=== PATIENT | female | born 1990 | race Caucasian/White ===

== ENCOUNTER 2020-07-08 15:38 | Outpatient (RCR) | payer OTHER, SELFPAY ==
[2020-07-08 16:07] LABS: Basophils Percent Auto 0.4 % (0.2-1.2); Eosinophils Absolute Auto 0.2 K/mm3 (0-0.3); Eosinophils Percent Auto 1.7 % (0-4.4); Hematocrit 34.5 % (37.0-47.0); Hemoglobin 11.5 g/dL (12.0-15.0); Immature Granulocyte Absolute 0.02 K/mm3 (0.00-0.031); Immature Granulocyte Percent A 0.2 % (0-0.5); Lymphocytes Absolute Auto 2.87 K/mm3 (0.9-3.2); Lymphocytes Percent Auto 32.1 % (18.3-44.2); Mean Corpuscular HGB Conc 33.3 g/dl (32-36); Mean Corpuscular Volume 90.1 fl (80-100); Monocytes Absolute Auto 0.4 K/mm3 (0.1-0.6); Monocytes Percent Auto 4.4 % (2.6-8.5); Neutrophils Absolute Auto 5.5 K/mm3 (1.3-6.7); Neutrophils Percent Auto 61.2 % (45.5-73.1); Platelet Count Result 181 k/mm3 (150-375); Red Blood Count 3.83 M/mm3 (4.2-5.4); Red Cell Distribution Width 12.2 % (11.5-14.5); White Blood Count 8.9 K/mm3 (4.5-10.0)
[2020-07-08 16:14] LABS: Add Urine Microscopic? NO; Appearance Urine Clear (Clear); Bilirubin Urine Negative (Negative); Blood Urine Negative (Negative); Color Urine Yellow (Yellow); Glucose Urine UA Negative (Negative); Ketones Urine Negative (Negative); Leukocyte Esterase Ur Negative LEU/UL (NEGATIVE); Nitrate Urine Negative (Negative); Protein Urine Negative (Negative); Specific Grav Ur 1.017 (1.001-1.035); Urobilinogen Urine Negative mg/dL (<2.0)
[2020-07-08 17:01] LABS: HIV 1/2 Ab P24 Ag Result Negative (Negative)
[2020-07-08 17:18] LABS: Hepatitis B Surface Antigen Negative (Negative)
[2020-07-08 17:22] LABS: Vitamin D 25 Hydroxy 28.7 ng/mL
[2020-07-08 17:34] LABS: Hepatitis C Virus Antibody Negative (Negative)
[2020-07-09 10:38] LABS: Rapid Plasma Reagin Non-Reactive (NonReactive)
[2020-07-14 22:35] LABS: Hematocrit 34.7 % (35.0-45.0); Hemoglobin 11.6 g/dL (11.7-15.5); MCH 30.3 pg (27.0-33.0); MCV 90.3 FL (80.0-100.0); RDW 12.7 % (11.0-15.0); Red Blood Cell Count 3.84 Mill/uL (3.80-5.10)
== END 2020-10-06 23:59 | disposition home or self-care (01) ==
LOC: ANHLAB 15:38
PROVIDERS: Visit Provider Obstetrics & Gynecology
DX: Z11.4 Encounter for screening for human immunodeficiency virus [HIV] (principal)
CPT/HCPCS: 36415; 81003; 82306; 83021; 84443; 85025; 86592; 86703; 86762; 86787; 86803; 86850; 86900; 86901; 87086; 87340; G0432

== ENCOUNTER 2020-12-03 08:49 | Outpatient (RCR) | payer OTHER, SELFPAY ==
[2020-12-03 10:20] LABS: Basophils Percent Auto 0.3 % (0.2-1.2); Eosinophils Absolute Auto 0.1 K/mm3 (0-0.3); Eosinophils Percent Auto 0.9 % (0-4.4); Hematocrit 34.3 % (37.0-47.0); Immature Granulocyte Absolute 0.05 K/mm3 (0.00-0.031); Immature Granulocyte Percent A 0.5 % (0-0.5); Lymphocytes Absolute Auto 1.61 K/mm3 (0.9-3.2); Lymphocytes Percent Auto 16.4 % (18.3-44.2); Mean Corpuscular HGB Conc 32.1 g/dl (32-36); Mean Corpuscular Hemoglobin 30.8 pg (26-34); Mean Corpuscular Volume 96.1 fl (80-100); Mean Platelet Volume 9.8 fl (7.4-10.4); Monocytes Absolute Auto 0.4 K/mm3 (0.1-0.6); Monocytes Percent Auto 3.6 % (2.6-8.5); Neutrophils Absolute Auto 7.7 K/mm3 (1.3-6.7); Neutrophils Percent Auto 78.3 % (45.5-73.1); Platelet Count Result 148 k/mm3 (150-375); Red Blood Count 3.57 M/mm3 (4.2-5.4); Red Cell Distribution Width 12.8 % (11.5-14.5); White Blood Count 9.8 K/mm3 (4.5-10.0)
[2020-12-03 10:32] LABS: Glucose 1 Hour PP 50gm Dose 156 mg/dL
[2020-12-03] MEDS: RHO(D) IMMUNE GLOBULIN 300 MCG/2 ML SYRINGE IM (14:25)
== END 2021-03-03 23:59 | disposition home or self-care (01) ==
LOC: ANHLAB 08:49
PROVIDERS: Visit Provider Obstetrics & Gynecology
DX: Z29.13 Encounter for prophylactic Rho(D) immune globulin (principal); O36.0190 Maternal care for anti-D [Rh] antibodies, unspecified trimester, not applicable or unspecified; Z3A.00 Weeks of gestation of pregnancy not specified
CPT/HCPCS: 36415; 82947; 85025; 85461; 90384; 96372; J2790

== ENCOUNTER 2020-12-19 08:37 | Outpatient (CLI) | payer OTHER, SELFPAY ==
[2020-12-19 09:39] LABS: Glucose Fasting Gestational 78 mg/dL (>/=95)
[2020-12-19 11:12] LABS: Glucose 1 Hour Gest 153 mg/dL (>/=180)
[2020-12-19 12:08] LABS: Glucose 2 Hour Gest 147 mg/dL (>/= 155)
[2020-12-19 13:04] LABS: Glucose 3 Hour Gest 109 mg/dL (>/=140)
== END 2020-12-19 08:38 | disposition home or self-care (01) ==
LOC: ANHLAB 08:41
PROVIDERS: Visit Provider Obstetrics & Gynecology
DX: R73.09 Other abnormal glucose (principal)
CPT/HCPCS: 36415; 82951; 82952

== ENCOUNTER 2021-01-07 08:50 | Outpatient (CLI) | payer OTHER, SELFPAY ==
[2021-01-07 09:34] LABS: Basophils Percent Auto 0.3 % (0.2-1.2); Eosinophils Absolute Auto 0.1 K/mm3 (0-0.3); Eosinophils Percent Auto 1.1 % (0-4.4); Hematocrit 32.9 % (37.0-47.0); Hemoglobin 10.9 g/dL (12.0-15.0); Immature Granulocyte Absolute 0.08 K/mm3 (0.00-0.031); Immature Granulocyte Percent A 0.8 % (0-0.5); Lymphocytes Absolute Auto 1.88 K/mm3 (0.9-3.2); Lymphocytes Percent Auto 18.9 % (18.3-44.2); Mean Corpuscular HGB Conc 33.1 g/dl (32-36); Mean Corpuscular Hemoglobin 30.9 pg (26-34); Mean Corpuscular Volume 93.2 fl (80-100); Mean Platelet Volume 10.1 fl (7.4-10.4); Monocytes Absolute Auto 0.6 K/mm3 (0.1-0.6); Monocytes Percent Auto 5.7 % (2.6-8.5); Neutrophils Absolute Auto 7.3 K/mm3 (1.3-6.7); Neutrophils Percent Auto 73.2 % (45.5-73.1); Platelet Count Result 155 k/mm3 (150-375); Red Blood Count 3.53 M/mm3 (4.2-5.4); Red Cell Distribution Width 12.8 % (11.5-14.5)
[2021-01-07 10:22] LABS: HIV 1/2 Ab P24 Ag Result Negative (Negative)
[2021-01-08 09:06] LABS: Rapid Plasma Reagin Non-Reactive (NonReactive)
== END 2021-01-07 08:51 | disposition home or self-care (01) ==
PROVIDERS: Visit Provider Obstetrics & Gynecology
DX: Z34.93 Encounter for supervision of normal pregnancy, unspecified, third trimester (principal); Z3A.32 32 weeks gestation of pregnancy
CPT/HCPCS: 36415; 85025; 86592; 86703; G0432

== ENCOUNTER 2021-02-08 10:16 | Inpatient (IN) | payer OTHER, SELFPAY ==
[2021-02-08] VITALS (102 sets, daily range): BP systolic 91–126; BP diastolic 40–87; PULSE 51–103; RESP 16; TEMP 36.4–37; O2SAT 90–100; BMI 24.4
[2021-02-08 14:39] LABS: Basophils Percent Auto 0.2 % (0.2-1.2); Eosinophils Absolute Auto 0.1 K/mm3 (0-0.3); Eosinophils Percent Auto 0.8 % (0-4.4); Hematocrit 38.3 % (37.0-47.0); Hemoglobin 12.8 g/dL (12.0-15.0); Immature Granulocyte Absolute 0.07 K/mm3 (0.00-0.031); Immature Granulocyte Percent A 0.7 % (0-0.5); Lymphocytes Absolute Auto 1.95 K/mm3 (0.9-3.2); Lymphocytes Percent Auto 18.4 % (18.3-44.2); Mean Corpuscular HGB Conc 33.4 g/dl (32-36); Mean Corpuscular Hemoglobin 31.1 pg (26-34); Mean Platelet Volume 10.2 fl (7.4-10.4); Monocytes Absolute Auto 0.5 K/mm3 (0.1-0.6); Neutrophils Percent Auto 74.9 % (45.5-73.1); Platelet Count Result 165 k/mm3 (150-375); Red Blood Count 4.12 M/mm3 (4.2-5.4); White Blood Count 10.6 K/mm3 (4.5-10.0)
--- NOTE | 2021-02-08 14:51 | LDADM ---
This patient, Hallie Mckeon, was admitted to Labor/Delivery/Recovery 104 on 02/08/21 at 10:16 to rule out labor. Pt ruled in for labor, then plans for labor, pain management and were discussed with patient. Patient oriented to hospital policies and general routines including ID bracelet, bed and alarms, visiting hours, pain management, procedures, bathroom and other care routines, personal items, smoking policy, room service/diet and guest tray routines, infant security routines, call light and visiting hours. Patient is encouraged to report perceived risks to care and to ask questions if she does not understand what she does told or what she should do. See OBIX for further documentation.
[2021-02-08] MEDS: LACTATED RINGERS 1,000 ML 125 ML IV CONT ×2 (14:59→15:21)
--- NOTE | 2021-02-08 15:08 | WPDANESEPP ---
Anes - Eval Pre Procedure Procedure: labor pain management Date/Time: 02/08/21 15:08 Surgeon: Sandra Preop Diagnosis: pain during labor Pre Op Diagnosis: Leaking Patient Data Age: 30 Gender: F Height: 1.63 m Weight: 64.6 kg Last Vital Signs Pulse 73 02/08/21 15:00 BP 120/73 02/08/21 15:00 Allergies Allergy/AdvReac Type Severity Reaction Status Date / Time No Known Allergies Allergy Verified 02/08/21 14:48 Home Medications Medication Instructions Recorded Confirmed Type docosahexaenoic acid 200 mg capsule 200 mg PO DAILY 06/25/20 02/08/21 History cholecalciferol (vitamin D3) 50 50 mcg PO DAILY 08/20/20 02/08/21 History mcg (2,000 unit) capsule ferrous sulfate 325 mg (65 mg 325 mg PO DAILY 01/29/21 02/08/21 History iron) tablet docusate sodium [Colace] 50 mg PO DAILY 01/31/21 02/08/21 History Laboratory Tests 02/08/21 02/08/21 14:23 14:23 WBC 10.6 K/mm3 H K/mm3 (4.5-10.0) RBC 4.12 M/mm3 L M/mm3 (4.2-5.4) Hgb 12.8 g/dL g/dL (12.0-15.0) Hct 38.3 % % (37.0-47.0) MCV 93.0 fl fl (80-100) MCH 31.1 pg pg (26-34) MCHC 33.4 g/dl g/dl (32-36) RDW 13.0 % % (11.5-14.5) Plt Count 165 k/mm3 k/mm3 (150-375) MPV 10.2 fl fl (7.4-10.4) Immature Gran % (Auto) 0.7 % H % (0-0.5) Neut % (Auto) 74.9 % H % (45.5-73.1) Lymph % (Auto) 18.4 % % (18.3-44.2) [place] % (Auto) 5.0 % % (2.6-8.5) Eos % (Auto) 0.8 % % (0-4.4) Baso % (Auto) 0.2 % % (0.2-1.2) Lymph # (Auto) 1.95 K/mm3 K/mm3 (0.9-3.2) [place] # (Auto) 0.5 K/mm3 K/mm3 (0.1-0.6) Eos # (Auto) 0.1 K/mm3 K/mm3 (0-0.3) Baso # (Auto) 0.0 K/mm3 K/mm3 (0.0-0.1) Abs Immat Gran (auto) 0.07 K/mm3 H K/mm3 (0.00-0.031) Absolute Neuts (auto) 8.0 K/mm3 H K/mm3 (1.3-6.7) Absolute Nucleated RBC 0.0 K/mm3 K/mm3 (0.0-0.012) Nucleated RBC % 0.0 % % (0.0-0.2) RPR Pending : gestational age (edc 02/26/21) HCG: positive Patient hx anesthesia problems: none Family hx anesthesia problems: none PMFSH Past Medical History Medical History (Updated 02/08/21 @ 15:05 by Janina Chaudhary CRNA) Vaginal delivery x1 Surgical History Surgical History No pertinent past surgical history Family History Family History Mother Hypertension Family history of gynecological problem Father Family history of diabetes mellitus in first degree relative Grandparent Hypertension Family history of chronic obstructive pulmonary disease Family history of dementia Other Family history of malignant neoplasm of male breast Social History Social History Smoking status: Never smoker Second hand tobacco smoke exposure: No Alcohol intake: current Substance use: unknown Gender identity (if verbalized by the patient): Female Spiritual care concerns: No Exam Day of Procedure 02/08/21 15:08
[2021-02-08] MEDS: OXYTOCIN 30 UNITS/NS 500 ML 30 UNITS/500 ML BAG IV CONT (17:16)
--- NOTE | 2021-02-08 20:24 | PM.OBPRVD ---
OB - Delivery Note Procedure Delivery date: 02/08/21 Procedure: Spontaneous vaginal delivery Intrapartal events: None Delivery augmentation: pitocin Delivery monitor: external FHT Route of delivery: Laceration Description: None Specimen: No Quantitative Blood Loss (ml): 100 Anesthesia type: Spinal Disposition: floor Complications: None Narrative: Patient admitted in active labor. She initially presented for leaking of fluid. ROM plus neg. She was jeni regularly. She was observed and her cervix did change. She had another episode of fluid and ROM plus at that time was equivocal but since she was having cervical change she admitted for labor and will have spontaneous rupture of membranes at approximately 1100. She did require pitocin augmentation. She dilated to complete. [place] Baby Date of : 02/08/21 Time of : 20:08 Weeks of gestation at delivery: 37 Infant gender: Male Weight (pounds): 6 Weight (ounces): 5 presentation: vertex position: Right Occiput Anterior Placenta delivery description: Spontaneous cord vessel description: 3 Vessels, Nuchal Cord and Tight (surgically reduced) score one minute: 8 score five minutes: 9
--- NOTE | 2021-02-08 20:29 | PM.IMHP ---
H&P: HPI History of Present Illness Date/Time: 02/08/21 20:29 Patient at 37 weeks with an EDC of 02/26 by LMP 05/22/20 consistent with a first trimester ultrasound. She presented with questionable leaking. Initial SROM negative. She was jeni and changing cervix and was admitted in labor. She did have another gush at admission but SROM equivocal. Suspect she did have ROM at the second episode. Admitted in labor. Labs reviewed. GBS neg. Chief Complaint: Leaking and contractions. Review of Systems Review of Systems: All systems reviewed & are unremarkable except as noted in HPI and below Constitutional: Constitutional: Reports no additional constitutional complaints and Denies headache(s) Eyes: Eyes: Denies spots in vision ENT: Reports system reviewed and no additional complaints, except as documented and Denies headache(s) Cardiovascular: Cardiovascular: Denies chest pain and Denies dyspnea Respiratory: Respiratory: Denies dyspnea Gastrointestinal: Gastrointestinal: Reports no additional gastrointestinal complaints Genitourinary: Genitourinary: Reports amenorrhea Musculoskeletal: Musculoskeletal: Reports no additional musculoskeletal complaints Integumentary/Breasts: Skin/Breast: Denies breast mass and Denies rash Neurologic: Denies headache(s) Psychiatric: Psychiatric: Reports no additional psychiatric complaints PMFSH Past Medical History Medical History Vaginal delivery x1 Surgical History Surgical History No pertinent past surgical history Family History Family History Mother Hypertension Family history of gynecological problem Father Family history of diabetes mellitus in first degree relative Grandparent Hypertension Family history of chronic obstructive pulmonary disease Family history of dementia Other Family history of malignant neoplasm of male breast Social History Social History Smoking status: Never smoker Second hand tobacco smoke exposure: No Alcohol intake: current Substance use: unknown Gender identity (if verbalized by the patient): Female Spiritual care concerns: No Meds Home Medications and Allergies Home Medications Medication Instructions Recorded Confirmed Type docosahexaenoic acid 200 mg capsule 200 mg PO DAILY 06/25/20 02/08/21 History cholecalciferol (vitamin D3) 50 50 mcg PO DAILY 08/20/20 02/08/21 History mcg (2,000 unit) capsule ferrous sulfate 325 mg (65 mg 325 mg PO DAILY 01/29/21 02/08/21 History iron) tablet docusate sodium [Colace] 50 mg PO DAILY 01/31/21 02/08/21 History Allergies Allergy/AdvReac Type Severity Reaction Status Date / Time No Known Allergies Allergy Verified 02/08/21 14:48 Vital Signs Vital Signs - 24 hr 02/08/21 11:25 02/08/21 13:26 02/08/21 14:32 Temperature 97.8 F 97.8 F Pulse Rate 79 Blood Pressure 121/73 Pulse Oximetry 02/08/21 15:00 02/08/21 15:19 02/08/21 15:20 Temperature 97.6 F Pulse Rate 73 Blood Pressure 120/73 Pulse Oximetry 100 02/08/21 15:21 02/08/21 15:24 02/08/21 15:25 Temperature Pulse Rate 74 77 Blood Pressure 126/69 126/63 Pulse Oximetry 100 02/08/21 15:28 02/08/21 15:29 02/08/21 15:33 Temperature Pulse Rate 72 86 Blood Pressure 121/74 122/62 Pulse Oximetry 100 02/08/21 15:34 02/08/21 15:35 02/08/21 15:39 Temperature Pulse Rate 89 Blood Pressure 123/67 Pulse Oximetry 100 100 02/08/21 15:40 02/08/21 15:44 02/08/21 15:45 Temperature Pulse Rate 89 77 Blood Pressure 115/47 L 124/61 Pulse Oximetry 100 02/08/21 15:49 02/08/21 15:50 02/08/21 15:54 Temperature Pulse Rate 81 Blood Pressure 110/66 Pulse Oximetry 99 100 02/08/21 15:55 02/08/21 15:59
[2021-02-08] MEDS: OXYTOCIN 30 UNITS/NS 500 ML 30 UNITS/500 ML BAG 125 UNITS IV CONT (20:51)
--- NOTE | 2021-02-08 22:46 | PC.NURSE ---
Patient transferred to post room #290 via wheelchair. Support person present. Oriented to unit, room, information board, rooming in, admission packet and security measures. Patient verbalizes understanding.
[2021-02-09 03:40] VITALS: BP 108/70; PULSE 76; RESP 16; TEMP 36.9; O2SAT 99
[2021-02-09 04:45] LABS: Hematocrit 34.1 % (37.0-47.0); Hemoglobin 11.4 g/dL (12.0-15.0)
[2021-02-09 07:50] VITALS: BP 108/77; PULSE 69; RESP 16; TEMP 37.3; O2SAT 100
[2021-02-09] MEDS: DOCUSATE SODIUM 100 MG CAPSULE PO (08:33)
[2021-02-09] MEDS: IBUPROFEN 600 MG TABLET PO ×2 (08:34→15:09)
[2021-02-09] MEDS: MULTIVIT/MIN/PREN/FOL AC/IRON TABLET 1 TAB PO (08:35)
[2021-02-09] MEDS: LANOLIN (LANSINOH) 7.5 GM CREAM 1 APPLIC TOPICAL (08:36)
[2021-02-09 09:57] LABS: Rapid Plasma Reagin Non-Reactive (NonReactive)
--- NOTE | 2021-02-09 10:03 | P.PNOB_ITS ---
OB - PN: Subj Subjective Date/time seen: 02/09/21 10:03 Patient doing well. Mild cramping well controlled with medication. Minimal-moderate lochia. Ambulating without difficulty. Baby well. OB - PN: Obj Data Labs CBC & Chem 7: 02/09/21 03:32 Labs: Laboratory Results - last 24 hr 02/08/21 02/08/21 02/08/21 14:23 14:23 14:23 WBC 10.6 H RBC 4.12 L Hgb 12.8 Hct 38.3 MCV 93.0 MCH 31.1 MCHC 33.4 RDW 13.0 Plt Count 165 MPV 10.2 Immature Gran % (Auto) 0.7 H Neut % (Auto) 74.9 H Lymph % (Auto) 18.4 [place] % (Auto) 5.0 Eos % (Auto) 0.8 Baso % (Auto) 0.2 Lymph # (Auto) 1.95 [place] # (Auto) 0.5 Eos # (Auto) 0.1 Baso # (Auto) 0.0 Abs Immat Gran (auto) 0.07 H Absolute Neuts (auto) 8.0 H Absolute Nucleated RBC 0.0 Nucleated RBC % 0.0 RPR Non-reactive Blood Type O Negative Antibody Screen Positive Antibody Identification Passive Due to RH Imm Glob Antigen Identification Cancelled DARIUS, IgG Interpret Not Performed DARIUS, Poly Interpret Negative DARIUS, Complement Interp Not Performed 02/09/21 03:32 WBC RBC Hgb 11.4 L Hct 34.1 L MCV MCH MCHC RDW Plt Count MPV Immature Gran % (Auto) Neut % (Auto) Lymph % (Auto) [place] % (Auto) Eos % (Auto) Baso % (Auto) Lymph # (Auto) [place] # (Auto) Eos # (Auto) Baso # (Auto) Abs Immat Gran (auto) Absolute Neuts (auto) Absolute Nucleated RBC Nucleated RBC % RPR Blood Type Antibody Screen Antibody Identification Antigen Identification DARIUS, IgG Interpret DARIUS, Poly Interpret DARIUS, Complement Interp OB - PN A/P Assessment and Plan (1) Normal spontaneous vaginal delivery: Code(s): O80 - Encounter for full-term uncomplicated delivery Status: Acute Assessment and Plan: PPD#1 doing well continue routine care anticipate dc home tomorrow Time Spent With Patient Time: Total time spent is greater than 50% in coordination of care (as documented) at patient's floor/unit and/or counseling patient: Exam Const: General: cooperative, healthy appearing, comfortable and no acute distress GI: GI Palp: Yes Soft to palpation and No Tenderness to palpation present (GI) Other: fundus firm below umbilicus Extrem: Right lower extremity: no edema Left lower extremity: no edema Other: no calf tenderness
[2021-02-09 11:35] VITALS: BP 117/79; PULSE 91; RESP 16; TEMP 36.9; O2SAT 99
--- NOTE | 2021-02-09 13:25 | PC.NURSE ---
Mother called out for assist with feeding, reporting tenderness to base of both nipples. Mother reports first child for 18 months. is able to freely thrust tongue past gum ridge and flange both lips. Skin is intact on both nipples, redness noted to base of nipple. Discussed the near term infant and possible precautions of weak latch, sleepy feedings, needing to wake each feeding, inability to maintain latch and poor milk transfer which increases chance for increased weight loss, jaundice and low milk supply. Stressed the importance of adequate breast stimulation by pumping, self-expression and skin to skin. Mother attempts to breast in cradle, infant latches shallow to breast with both lips turned in. Reviewed infant feeding cues, frequencies, duration of feedings, feeding elimination flow sheet, and signs of adequate intake. Reviewed positioning/alignment in cross cradle, holding breast in ?U? hold and guided asymmetrical latch on. Discussed rational for each. Suggested releasing latch to attempt in cross cradle Infant able to latch correctly. Reviewed signs of a correct latch, effective nursing and suck swallow ratio. Infant nursed eagerly, with steady draws and occasional swallowing noted. Reviewed the difference of effective vs ineffective nursing. Suggested mother stimulate while feeding to increase stimulation, increase intake and to assist with maintaining deep latch. Infant would slip to shallow latch, mother reports tenderness. Demonstrated how to adjust latch more deeply while feeding. Mother reports she can feel change in latch and has no tenderness. Nipple care reviewed of lanolin after feedings, warm compresses as needed.
[2021-02-09 15:10] VITALS: BP 115/70; PULSE 87; RESP 18; TEMP 36.4; O2SAT 99
[2021-02-09 18:30] VITALS: BP 129/89; PULSE 76; RESP 18; TEMP 37.1; O2SAT 99
[2021-02-10] MEDS: DOCUSATE SODIUM 100 MG CAPSULE PO (08:13)
[2021-02-10] MEDS: IBUPROFEN 600 MG TABLET PO (08:13)
[2021-02-10] MEDS: MULTIVIT/MIN/PREN/FOL AC/IRON TABLET 1 TAB PO (08:13)
[2021-02-10 08:15] VITALS: BP 113/78; PULSE 67; RESP 16; TEMP 36.8
--- NOTE | 2021-02-10 09:06 | P.DS_ITS ---
DS: Admitting Diagnosis Admitting Diagnosis Labor DS: Discharge Diagnosis Discharge Diagnosis (1) Delivery normal: Code(s): O80 - Encounter for full-term uncomplicated delivery Status: Acute OB - DS: Summary Hospital Course Hospital Course: Patient admitted on Feb 08 in labor. She had an uncomplicated vaginal delivery. She did well . day 2 she had adequate pain control, ambulating well, tolerating regular diet. She was allowed discharge on day 2. OB Procedures : Ultrasound OB Procedures Intrapartum: Spontaneous Vag Delivery OB Procedures: : None Peripartum Data Infant Delivery Method: Natural Vaginal complications: none Status at Discharge Functional status at discharge: independent ambulation Time Spent with Patient Time attestation: Total time spent providing and/or coordinating discharge services: Exam Const: General: cooperative Orientation/consciousness: oriented to person, oriented to place and oriented to time HENMT: General nose exam: Normal external nose present Eyes: General: appearance normal, both eyes and all related structures Resp: Effort & Inspection: normal respiratory effort GI: Inspection: normal to inspection Skin: General skin exam: normal color Neuro: General: oriented to person, oriented to place and oriented to time Extrem: General: normal to inspection and no calf tenderness Psych: Appearance: grossly normal Mental Status: mental status grossly normal DS: Data Data Completed and Pending Labs on day of discharge: Labs from last 24 hours 02/08/21 14:23 RPR Non-reactive Discharge Plan Discharge Attending physician on discharge: Brennan Flores Consulting providers: Janina Chaudhary Discharging Clinician: Brennan Flores Anticipated Discharge Date/Time: 02/10/21 09:12 Patient Disposition: Home, Self-Care Activity: may shower and pelvic rest Diet: regular Discharge Instructions: Pelvic rest for 4-6 weeks. May take over the counter Ibuprofen or Tylenol for pain. Call if saturating more than a pad an hour, leg redness, pain and swelling, temperature>100.4. No strenuous activity. Take PNV daily. Patient Instructions: Antibiotic Form Stand Alone Forms: General Discharge Information Follow-up/Referrals: Brennan Flores MD [Physician] - Discharge Medications: Discontinued DHA 200 mg capsule 200 mg PO DAILY RF: 0 ferrous sulfate [Feosol] 325 mg (65 mg iron) tablet 325 mg PO DAILY RF: 0 cholecalciferol (vitamin D3) 50 mcg (2,000 unit) capsule 50 mcg PO DAILY RF: 0 Colace 50 mg Capsule 50 mg PO DAILY RF: 0 Date of admission: 02/08/21 10:16 Primary Care Provider: PHYSICIAN,WEBFOCUS DEVELOPER Admitting Provider: Brennan Flores Attending physician on admission: Brennan Flores Condition: Stable
[2021-02-12 10:31] VITALS: BP 118/77; PULSE 70; RESP 20; TEMP 37; O2SAT 100
== END 2021-02-10 10:55 | disposition home or self-care (01) | DRG 807 ==
LOC: ANHLDR 13:52 → ANHOB2 22:53
PROVIDERS: Admitting Provider Obstetrics & Gynecology; Visit Provider Obstetrics & Gynecology
DX: O69.1XX0 Labor and delivery complicated by cord around neck, with compression, not applicable or unspecified (principal); Z37.0 Single live birth; Z3A.37 37 weeks gestation of pregnancy; O36.8330 Maternal care for abnormalities of the fetal heart rate or rhythm, third trimester, not applicable or unspecified
CPT/HCPCS: 36415; 84112; 85014; 85018; 85025; 86592; 86850; 86880; 86900; 86901; A9270; J2590; J2795; J7120

== ENCOUNTER 2021-10-30 10:04 | Emergency (ER) | payer OTHER, SELFPAY ==
--- NOTE | 2021-10-30 10:10 | ED.URI ---
HPI - URI/Sore Throat General Chief Complaint: Upper Respiratory Infection Stated Complaint: Congestion,Runny Nose,Fatigue,Facial Pain Time Seen by Provider: 10/30/21 10:15 Source: patient, RN notes reviewed and old records reviewed Mode of arrival: ambulatory Limitations: no limitations History of Present Illness HPI Narrative: 31-year-old female who presents to [facility] with complaints of runny nose congestion fatigue and facial pain for the past 11 days. Patient reports she has been taking Ree-D and Nasacort and ibuprofen for her symptoms with some improvement but not resolution. Patient states facial pain and forehead discomfort with headache, with nasal drainage which has turned to thick greenish discharge. Patient denies any shortness of breath or acute cough, denies any ear pain. Patient has had COVID immunizations and booster and has had the flu shot. Patient is presently breast-feeding. She did take home COVID test on 14 which was negative MD elicited complaint: rhinorrhea, nasal congestion and other (fatigue and facial pain) Related Data Home Medications Medication Instructions Recorded Confirmed [id number] fum-folic [id number] 1 pkg PO DAILY 10/30/21 10/30/21 [Daily ] Allergies Allergy/AdvReac Type Severity Reaction Status Date / Time No Known Allergies Allergy Verified 10/30/21 10:07 Review of Systems Review of Systems: CONSTITUTIONAL: Denies fever, chills, or sweats. EYES: Denies visual changes, redness, or discharge. ENT: Positive rhinorrhea, congestion,resolved sore throat, no otalgia. CARDIOVASCULAR: Denies chest pain, palpitations, or edema. RESPIRATORY: Denies cough or dyspnea. GASTROINTESTINAL: Denies abdominal pain, nausea, vomiting, or diarrhea. GENITOURINARY: Denies dysuria or hematuria. SKIN: Denies rash or itching. MUSCULOSKELETAL: Denies back pain, joint pain, denies body aches NEUROLOGIC: Positive headache, numbness, or weakness. PSYCHIATRIC: Denies anxiety or depression. All systems reviewed & are unremarkable except as noted in HPI and below PMFSH Past Medical History Medical History (Updated 10/30/21 @ 10:32 by Marcie Stevens NP) Vaginal delivery x1 Surgical History Surgical History (Updated 10/30/21 @ 10:13 by Marcie Stevens NP) S/P wisdom tooth extraction Family History Family History Mother Hypertension Family history of gynecological problem Father Family history of diabetes mellitus in first degree relative Grandparent Hypertension Family history of chronic obstructive pulmonary disease Family history of dementia Other Family history of malignant neoplasm of male breast Social History Social History Smoking status: Never smoker Second hand tobacco smoke exposure: No Alcohol intake: current Substance use: unknown Gender identity (if verbalized by the patient): Female Spiritual care concerns: No Comments At time of signature, agree with nursing past medical, surgical, social and family history. There is no relevant family history pertinent to the presenting complaint Exam Narrative: GENERAL: Well-appearing, well-nourished, and in no acute distress. HEAD: Normocephalic, atraumatic. EYES: PERRLA and EOMI. ENT: Nares red with clear to green-tinged rhinorrhea no epistaxis. Mucous membranes moist. TMs normal with dull light reflex, throat red no lesions or exudates or tonsillar enlargement, postnasal drainage present NECK: Supple. No lymphadenopathy CHEST: Clear to auscultation. No respiratory distress. SaO2 100% on room air no tach HEART: Regular rate and rhythm. No murmur heard. Normal peripheral pulses. ABDOMEN: Soft, nontender, nondistended, normal active bowel sounds. EXTREMITIES: Normal range of motion. No edema. SKIN: Warm, dry, no rash. NEURO: No focal deficits. Alert and oriented x3. Cou
[2021-10-30 10:12] VITALS: BP 104/70; PULSE 76; RESP 14; TEMP 36.7; O2SAT 100
== END 2021-10-30 10:34 | disposition home or self-care (01) ==
PROVIDERS: Emergency Provider Registered Nurse; PCP Physician Assistant
DX: J01.40 Acute pansinusitis, unspecified (principal)
CPT/HCPCS: 99213; G0463

== ENCOUNTER 2023-02-20 13:43 | Emergency (ER) | payer OTHER, SELFPAY ==
[2023-02-20 13:57] VITALS: BP 134/72; PULSE 76; RESP 16; TEMP 37.1; O2SAT 100
--- NOTE | 2023-02-20 14:16 | ED.GENADULT ---
HPI - General Adult General Chief complaint: Upper Respiratory Infection Stated complaint: sorethroat Time Seen by Provider: 02/20/23 14:17 Source: patient Mode of arrival: ambulatory Limitations: no limitations History of Present Illness HPI narrative: 32-year-old female patient presents to [facility] with complaints of sore throat that started yesterday. Patient states that her was recently diagnosed and treated with strep. Patient states she has had a headache but denies fevers patient states she just feels like she is in a fog along with a sore throat but denies any ear pain runny nose, coughing, shortness of breath or chest pain. Patient denies any nausea, vomiting or diarrhea. Patient denies . Related Data Allergies Allergy/AdvReac Type Severity Reaction Status Date / Time No Known Allergies Allergy Verified 02/20/23 13:46 Review of Systems Review of Systems: CONSTITUTIONAL: Denies fever, chills, or sweats. EYES: Denies visual changes, redness, or discharge. ENT: Denies rhinorrhea, congestion, Positive sore throat, or otalgia. CARDIOVASCULAR: Denies chest pain, palpitations, or edema. RESPIRATORY: Denies cough or dyspnea. GASTROINTESTINAL: Denies abdominal pain, nausea, vomiting, or diarrhea. GENITOURINARY: Denies dysuria or hematuria. SKIN: Denies rash or itching. MUSCULOSKELETAL: Denies back pain, joint pain, or myalgia. NEUROLOGIC: positive headache, deniesnumbness, or weakness. PSYCHIATRIC: Denies anxiety or depression. [facility] Past Medical History Medical History Vaginal delivery x1 Surgical History Surgical History S/P wisdom tooth extraction Family History Family History Mother Hypertension Family history of gynecological problem Father Family history of diabetes mellitus in first degree relative Grandparent Hypertension Family history of chronic obstructive pulmonary disease Family history of dementia Other Family history of malignant neoplasm of male breast Social History Social History Smoking status: Never smoker Second hand tobacco smoke exposure: No Alcohol intake: current Substance use: unknown Gender identity (if verbalized by the patient): Female Spiritual care concerns: No Comments At the time of my signature I agree with nursing past medical history, surgical, social, and family history. There is no relevant family history pertinent to the presenting complaint. Exam Narrative: GENERAL: Well-appearing, well-nourished, and in no acute distress. HEAD: Normocephalic, atraumatic. EYES: PERRLA and EOMI. ENT: Nares clear, no rhinorrhea or epistaxis. Mucous membranes moist. posterior pharynx no erythema, tonsillar enlargement, exudates or lesions present. Bilateral TMs are clear no erythema or foreign bodies the canal. NECK: Supple. No lymphadenopathy CHEST: Clear to auscultation. No respiratory distress. HEART: Regular rate and rhythm. No murmur heard. Normal peripheral pulses. ABDOMEN: Soft, nontender, nondistended, normal active bowel sounds. EXTREMITIES: Normal range of motion. No edema. SKIN: Warm, dry, no rash. NEURO: No focal deficits. Alert and oriented x3. Course Course Level of Care: Express Care Visit Vital Signs Vital signs: Vital Signs Temperature 37.1 C 02/20/23 13:57 Pulse Rate 76 02/20/23 13:57 Respiratory Rate 16 02/20/23 13:57 Blood Pressure 134/72 02/20/23 13:57 Pulse Oximetry 100 02/20/23 13:57 Oxygen Delivery Room Air 02/20/23 13:57 Temperature 37.1 C 02/20/23 13:57 Pulse Rate 76 02/20/23 13:57 Respiratory Rate 16 02/20/23 13:57 Blood Pressure 134/72 02/20/23 13:57 Pulse Oximetry 100 02/20/23 13:57 Oxygen Delivery Room Air 02/20/23 13:
== END 2023-02-20 14:57 | disposition home or self-care (01) ==
PROVIDERS: Emergency Provider Nurse Practitioner Family; PCP Physician Assistant
DX: J06.9 Acute upper respiratory infection, unspecified (principal); J02.9 Acute pharyngitis, unspecified; Z20.822 Contact with and (suspected) exposure to COVID-19
CPT/HCPCS: 87081; 87426; 87880; 99213; C9803; G0463

== ENCOUNTER 2023-08-08 08:04 | Emergency (ER) | payer OTHER, SELFPAY ==
--- NOTE | 2023-08-08 08:09 | ED.URI ---
HPI - URI/Sore Throat General Chief Complaint: Upper Respiratory Infection Stated Complaint: sorethroat Time Seen by Provider: 08/08/23 08:22 Source: patient, RN notes reviewed and old records reviewed Mode of arrival: ambulatory Limitations: no limitations History of Present Illness HPI Narrative: 33-year-old female presents to the [facility] with complaints of a sore throat 3-4 days Patient's daughter positive for strep No treatment prior to arrival Related Data Home Medications Medication Instructions Recorded Confirmed No Home Medications 08/08/23 08/08/23 Allergies Allergy/AdvReac Type Severity Reaction Status Date / Time No Known Allergies Allergy Verified 08/08/23 08:19 Review of Systems Review of Systems: All systems reviewed & are unremarkable except as noted in HPI and below Constitutional: Constitutional: Reports no additional constitutional complaints Eyes: Eyes: Reports no additional eye complaints ENT: Reports as per HPI and Reports sore throat Cardiovascular: Cardiovascular: Reports no additional cardiovascular complaints, Denies chest pain and Denies dyspnea Respiratory: Respiratory: Reports no additional respiratory complaints, Denies chest congestion, Denies cough and Denies dyspnea Gastrointestinal: Gastrointestinal: Reports no additional gastrointestinal complaints, Denies abdominal pain, Denies nausea and Denies vomiting Musculoskeletal: Musculoskeletal: Reports no additional musculoskeletal complaints Integumentary/Breasts: Skin/Breast: Reports system reviewed and no additional complaints, except as docu Neurologic: Reports system reviewed and no additional complaints, except as documented Psychiatric: Psychiatric: Reports no additional psychiatric complaints Allergic/Immunologic: Allergic/Immunologic: Reports no additional allergic/immunologic complaints PMFSH Past Medical History Medical History Vaginal delivery x1 Surgical History Surgical History S/P wisdom tooth extraction Family History Family History Mother Hypertension Family history of gynecological problem Father Family history of diabetes mellitus in first degree relative Grandparent Hypertension Family history of chronic obstructive pulmonary disease Family history of dementia Other Family history of malignant neoplasm of male breast Social History Social History Smoking status: Never smoker Second hand tobacco smoke exposure: No Alcohol intake: current Substance use: unknown Lack of Transportation: No Lack of Food: Never True Current Housing: I Have Housing Concerned About Future Housing: No Difficulty Paying Gas/Electric Bills: No Difficulty Paying for Meds: No Currently Unemployed: No Living arrangements: with family Occupation/Education: occupation Gender identity (if verbalized by the patient): Female Spiritual care concerns: No Comments At the time of my signature, I reviewed and agree with the nursing past medical, surgical, social, and family history. There is no relevant family history pertinent to the patient complaint. Exam Const: General: cooperative, healthy appearing, comfortable, no acute distress, well developed, alert and well nourished Nutritional Appearance: well nourished Orientation/consciousness: patient oriented x3 Limitations: no limitations HENMT: Head: normal to inspection Ears: hearing grossly normal bilaterally, external ears normal, TM's normal bilaterally, EAC's normal, mastoids normal and no periauricular adenopathy Face/Nose/Sinus: Normal external nose present, Normal nares present, Normal nasal mucous membranes and turbinates present, normal facial exam and face symmetric Face and sinus: normal facia
[2023-08-08 08:18] VITALS: BP 108/63; PULSE 62; RESP 18; TEMP 36.6; O2SAT 100
[2023-08-08 08:19] VITALS: BP 108/63; PULSE 62; RESP 18; TEMP 36.6; O2SAT 100
== END 2023-08-08 08:51 | disposition home or self-care (01) ==
PROVIDERS: Emergency Provider Nurse Practitioner
DX: J02.9 Acute pharyngitis, unspecified (principal); J06.9 Acute upper respiratory infection, unspecified
CPT/HCPCS: 87081; 87880; 99213; G0463

== ENCOUNTER 2023-12-04 09:36 | Emergency (ER) | payer OTHER, SELFPAY ==
--- NOTE | 2023-12-04 09:39 | ED.GENADULT ---
HPI - General Adult General Chief complaint: Ear Stated complaint: rt ear pain Time Seen by Provider: 12/04/23 09:39 Source: patient Mode of arrival: ambulatory Limitations: no limitations History of Present Illness HPI narrative: 30 feet presents to the [facility] with complaints of ear wax into the right ear. Patient states she has had a toes of impacted earwax in the past and has had to go to the doctor to get it removed. Patient states she has been using some [id number] ear wax drops but feels that they have not been helping because she had episode of dizziness last night. Denies fevers, body aches or chills. Denies any pain. Related Data Home Medications Medication Instructions Recorded Confirmed No Home Medications 12/04/23 12/04/23 Allergies Allergy/AdvReac Type Severity Reaction Status Date / Time No Known Allergies Allergy Verified 12/04/23 10:07 Review of Systems Review of Systems: CONSTITUTIONAL: Denies fever, chills, or sweats. EYES: Denies visual changes, redness, or discharge. ENT: Denies rhinorrhea, congestion, sore throat, or otalgia. Positive ear wax to right ear CARDIOVASCULAR: Denies chest pain, palpitations, or edema. RESPIRATORY: Denies cough or dyspnea. GASTROINTESTINAL: Denies abdominal pain, nausea, vomiting, or diarrhea. GENITOURINARY: Denies dysuria or hematuria. SKIN: Denies rash or itching. MUSCULOSKELETAL: Denies back pain, joint pain, or myalgia. NEUROLOGIC: Denies headache, numbness, or weakness. PSYCHIATRIC: Denies anxiety or depression. [facility] Past Medical History Medical History (Updated 12/04/23 @ 10:21 by COSTA Tello) Gastroesophageal reflux disease without esophagitis Hx of abnormal cervical Pap smear Irregular periods Vaginal delivery x1 Surgical History Surgical History S/P wisdom tooth extraction Family History Family History Mother Hypertension Family history of gynecological problem Father Family history of diabetes mellitus in first degree relative Grandparent Hypertension Family history of chronic obstructive pulmonary disease Family history of dementia Other Family history of malignant neoplasm of male breast Social History Social History (Reviewed 12/04/23 @ 09:40 by KRYSTLE Tello Smoking status: Never smoker Second hand tobacco smoke exposure: No Alcohol intake: current Substance use: unknown Lack of Transportation: No Lack of Food: Never True Current Housing: I Have Housing Concerned About Future Housing: No Difficulty Paying Gas/Electric Bills: No Difficulty Paying for Meds: No Currently Unemployed: No Living arrangements: with family Occupation/Education: occupation Gender identity (if verbalized by the patient): Female Spiritual care concerns: No Comments At the time of my signature I agree with nursing past medical history, surgical, social, and family history. There is no relevant family history pertinent to the presenting complaint. Exam Narrative: GENERAL: Well-appearing, well-nourished, and in no acute distress. HEAD: Normocephalic, atraumatic. EYES: PERRLA and EOMI. ENT: Nares clear, no rhinorrhea or epistaxis. Mucous membranes moist. patient does have cerumen present to the right canal but it is not obstructing I am able to view the tympanic membrane. No evidence of any kind of infection to the canal or the tympanic membrane. NECK: Supple. No lymphadenopathy CHEST: Clear to auscultation. No respiratory distress. HEART: Regular rate and rhythm. No murmur heard. Normal peripheral pulses. ABDOMEN: Soft, nontender, nondistended, normal active bowel sounds. EXTREMITIES: Normal range of motion. No edema. SKIN: Warm, dry, no rash. NEURO: No focal deficits. Alert and oriented x3. Course Course Level of Care: Express Care Visit Vital S
[2023-12-04 10:10] VITALS: BP 117/67; PULSE 68; RESP 15; TEMP 36.3; O2SAT 100
== END 2023-12-04 10:20 | disposition home or self-care (01) ==
PROVIDERS: Emergency Provider Nurse Practitioner Family; PCP Nurse Practitioner Family
DX: H61.21 Impacted cerumen, right ear (principal); K21.9 Gastro-esophageal reflux disease without esophagitis
CPT/HCPCS: 99211; G0463